=== PATIENT | female | born 1930 | race African-American/Black ===

== ENCOUNTER 2017-05-17 18:38 | Emergency (ER) | payer OTHER ==
[~2017-05-17] VITALS: Ht 167.6 cm; Wt 70.5 kg
[2017-05-17] MEDS ORDERED: OLAN2.5T3 PO (18:59)
[2017-05-17] MEDS ORDERED: HALO5I IM (18:59)
[2017-05-17] MEDS ORDERED: METO25 PO (18:59)
[2017-05-17] MEDS ORDERED: SERT50TA12 PO (18:59)
[2017-05-17] MEDS ORDERED: PRAV40TA4 PO ×2 (18:59)
[2017-05-17] MEDS ORDERED: LOSA50TA37 PO (18:59)
[2017-05-17] MEDS ORDERED: GUAIF600 PO (18:59)
[2017-05-17] MEDS ORDERED: ACET-2247 PO (18:59)
[2017-05-17] MEDS ORDERED: AMLO-512 PO (18:59)
[2017-05-17 20:11] VITALS: BP 141/65
[2017-05-17 20:12] LABS: GLUCOSE,POINT OF CARE 112 MG/DL (70-110)
== END 2017-05-17 21:02 | disposition home or self-care (01) ==
LOC: EMS 18:39
DX: R46.89 Other symptoms and signs involving appearance and behavior (principal); F32.9 Major depressive disorder, single episode, unspecified; I11.9 Hypertensive heart disease without heart failure; I48.91 Unspecified atrial fibrillation
CPT/HCPCS: 82962; 99284